=== PATIENT | female | born 1945 | race Hispanic/Latino ===

== ENCOUNTER 2019-01-25 10:15 | Outpatient (CLI) | payer MEDICARE ==
--- NOTE | 2019-01-25 10:55 | ULT ---
EXAM: Left lower extremity venous Doppler US HISTORY: left lower extremity edema and pain FINDINGS: Grayscale, color-flow, Doppler evaluation, spectral analysis of the left lower extremity venous struc tures is performed with 2-D imaging. The left common femoral, superficial femoral, popliteal, posterior tibial, proximal greater saphenous and profunda femoral veins are imaged. There is normal luminal compressibility, flow, and augmentation the visualized deep venous structures of the left lower extremity. IMPRESSION: No evidence of a deep vein thrombosis in the left lower extremity.
== END 2019-01-25 10:16 | disposition home or self-care (01) ==
LOC: ULT 10:15
PROVIDERS: ATTEND Orthopaedic Surgery
DX: S72.002D Fracture of unspecified part of neck of left femur, subsequent encounter for closed fracture with routine healing (principal); R60.0 Localized edema

== ENCOUNTER 2020-03-12 09:38 | Outpatient (CLI) | payer MEDICARE ==
--- NOTE | 2020-03-12 12:16 | RAD ---
CERVICAL SPINE 4 VIEWS: HISTORY: Cervicalgia. FINDINGS/IMPRESSION: Cervical lordosis is maintained. There are mild degenerative changes in the cervical spine. No frac ture, subluxation, or bony destruction is identified. POS: [facility]
--- NOTE | 2020-03-12 12:25 | RAD ---
THORACIC SPINE 2 VIEWS: Date: 03/12/2020 HISTORY: Back pain. Scoliosis. FINDINGS/IMPRESSION: Multilevel degenerative changes are present. No fracture or subluxation or bony destruction is seen. No significant scoliosis is seen. POS: JOHN
== END 2020-03-12 09:39 | disposition home or self-care (01) ==
LOC: BICRAD 09:38 → EDBD 09:38 → BICRAD 09:39
PROVIDERS: ATTEND Family Medicine
DX: M54.2 Cervicalgia (principal); M41.24 Other idiopathic scoliosis, thoracic region; M47.814 Spondylosis without myelopathy or radiculopathy, thoracic region; M47.812 Spondylosis without myelopathy or radiculopathy, cervical region; M40.50 Lordosis, unspecified, site unspecified
CPT/HCPCS: 72040; 72070